=== PATIENT | female | born 1960 | race Caucasian/White ===

== ENCOUNTER 2023-09-24 10:05 | Observation (INO) ==
--- NOTE | 2023-09-24 10:23 | Emergency Department Note ---
Impression & Plan Syncopal episodes, Osteoporosis, Acquired hypothyroidism ED Provider Note NAME: GABRIEL GIBSON AGE: 63 SEX: F : 1960 ARRIVES VIA: Walk-In INFORMANT: Patient, ED PROVIDER(S): Luc Atwood MD CHIEF COMPLAINT: Syncope MEDICAL DECISION MAKING: Patient presents due to concern for syncope x 2. IV was established and blood work was obtained. Patient was ordered IV fluids and screening chest x-ray performed. Patient's blood work shows a normal white count H&H and platelet count. The patient's kidney function is unremarkable. Hyponatremia noted. BSG at 217. Hemoglobin A1c was ordered. This is noted to be elevated at 6.1. I did discuss admission for observation and further monitoring. After further discussion she is amenable to this. The patient is not local to the area but is transition traveling from [place] to [place] to help take care of her parents. I did speak with the on-call hospitalist service Berta Gilbert PA-C and the patient was admitted by Dr. Sow Discussion w/ other healthcare providers: Berta Gilbert PA-C and Dr. Sow inpatient medicine service Prior /Outside records reviewed: None Differential diagnosis: Vasovagal event, dehydration, infection, hypoglycemia, electrolyte abnormalities, arrhythmia, pulmonary embolism, seizure among others were considered. Diagnostics, as interpreted by me: ECG: Sinus bradycardia, rate of 55, normal intervals, normal axis no ST elevations. Cardiac monitoring: An order was placed for continuous cardiac monitoring. The monitor shows a rate of 56 with sinus rhythm. Patient was placed on pulse oximetry Medical decision rules: None Imaging studies: I informally interpreted the patient's chest x-ray which does not show obvious pneumonia or pneumothorax with formal report to follow. HPI: Patient presents due to concern for syncope that occurred around 930 this morning. The patient was with a friend when she asked her to come over if she had a wave of nausea and reportedly had passed out in the friend's arms. She had sat her down to the floor and then laid her down. She came to fairly quickly. Soon thereafter the patient got back up immediately to eat and had some water and a banana. Patient reportedly had a second episode while seated in the chair where she had some generalized shaking which lasted maybe seconds and then seemed to be "out for longer period of time." This was per the friend who witnessed this. Patient denies any head or neck pain patient reportedly was not postictal not confused when she came to. Patient states that she did have a wave of nausea preceding the other episode and seemed "stronger." Patient denies any numbness tingling or focal weakness new. No prior history of stroke or seizure. Patient states that paternal family history of seizures although the one was likely provoked after a trauma with associated skull fracture. Patient relates that in the past she has have a feeling of fluttering or palpitations and she has brought this to the attention of other healthcare providers but the severity did not seem to warrant further evaluation at that time. Patient states that she did not have any symptoms other than the nausea preceding either event patient states that she does feel well now. The patient states that she slept well last evening. The patient did take some decaf green tea this morning but denies any supplements or stimulants no alcohol tobacco or drug use PAST MEDICAL HISTORY: Hypothyroidism, osteoporosis PAST SURGICAL HISTORY: Partial thyroidectomy SOCIAL HISTORY: Moving from [place] to [place] in transition to take care of her parents. Denies alcohol tobacco or drug use HOME MEDICATIONS: See Below ALLERGIES: See Below VITALS: See Below PHYSICAL EXAMINATION: GENERAL: NAD, non-toxic. Wearing glasses. EYE EXAM: Normal conjunctiva. PERRL, no anisocoria and EOM's grossly intact w/o pain. OROPHARYNX: Moist mucus membranes, grossly normal dentition. NECK: Trachea midline, no stridor. Supple, no nuchal rigidity, no adenopathy, non-tender. No signs of meningismus. FROM of the neck with good chin to chest and neck extension. LUNGS: Clear to auscultation. Normal chest wall mechanics. HEART: NSR, no MRG. ABDOMEN: Abdomen soft, non-tender, no masses, no rebound or guarding. BACK: No CVA TTP. SKIN: No rashes and no bruising. UPPER EXTREMITIES: Upper extremities are grossly normal. LOWER EXTREMITIES: Grossly normal, no edema. NEURO EXAM: A&O x3, cranial nerves II-XII grossly intact, normal speech, moves all 4 extremities. Good [id number], no drift and no sensory deficits. Past Med/Surg History Medical History Acquired hypothyroidism Osteoporosis MGUS (monoclonal gammopathy of unknown significance) Surgical History History of partial thyroidectomy Hx of tonsillectomy Wrist fracture L wrist with surgical repair, pins and screws Family History Other Diabetes Heart disease Kidney disease Social History Smoking Status: Never smoker Hx Alcohol Use: No Hx Substance Use: No Preferred Language: Bolivian Feels Safe at Home: Yes Home Meds Home Medications Medication Instructions Recorded Confirmed alendronate 70 mg tablet 70 mg PO WK 09/24/23 09/24/23 levothyroxine 50 mcg tablet 50 mcg PO DAILY 09/24/23 09/24/23 Results & Data (ED) Vital Signs Vital Signs - 24 hr 09/24/23 10:10 09/24/23 10:41 09/24/23 10:41 Temperature 36.6 C Temperature Source Temporal Artery Scan Pulse Rate 57 L Pulse Rate [Apical] 63 Respiratory Rate 18 18 Respiratory Effort / Characteristics Non-Labored Spontaneous Respiratory Depth Normal Normal Respiratory Pattern Regular Blood Pressure 137/81 Blood Pressure [Left Arm] 129/74 Blood Pressure Mean 99 Blood Pressure Mean [Left Arm] 92 Blood Pressure Position Sitting Blood Pressure Position [Left Arm] Lying Pulse Oximetry 100 100 Oxygen Delivery Method Room Air Room Air Room Air Sepsis Recent Fever Within 48 Hours No Sepsis New/Unexplained Change in Mental Status No Sepsis Action Taken by Nursing No Action Required 09/24/23 10:50 09/24/23 11:55 09/24/23 12:06 Temperature Temperature Source Pulse Rate 57 L 68 Pulse Rate [Apical] 65 Respiratory Rate 18 18 Respiratory Effort / Characteristics Non-Labored Spontaneous Respiratory Depth Normal Respiratory Pattern Regular Blood Pressure Blood Pressure [Left Arm] 116/68 Blood Pressure Mean Blood Pressure Mean [Left Arm] 84 Blood Pressure Position Blood Pressure Position [Left Arm] Lying Pulse Oximetry 100 100 Oxygen Delivery Method Room Air Room Air Sepsis Recent Fever Within 48 Hours Sepsis New/Unexplained Change in Mental Status Sepsis Action Taken by Nursing 09/24/23 15:01 Temperature Temperature Source Pulse Rate Pulse Rate [Apical] 60 Respiratory Rate 18 Respiratory Effort / Characteristics Non-Labored Spontaneous Respiratory Depth Normal Respiratory Pattern Regular Blood Pressure Blood Pressure [Left Arm] 121/79 Blood Pressure Mean Blood Pressure Mean [Left Arm] 93 Blood Pressure Position Blood Pressure Position [Left Arm] Pulse Oximetry 100 Oxygen Delivery Method Room Air Sepsis Recent Fever Within 48 Hours Sepsis New/Unexplained Change in Mental Status Sepsis Action Taken by Shelter Medications Current Medication List: was personally reviewed by me Laboratory Data Attestation: I reviewed the patient's lab results. 09/24/23 10:35 09/24/23 10:35 Lab Results 09/24/23 Range/Units 10:35 WBC 6.59 (4.8-10.8) K/ul RBC 4.68 (4.20-5.40) M/uL Hgb 12.8 (12.0-16.0) g/dl Hct 40.5 (37.0-47.0) % MCV 86.5 (80.0-100.0) fL MCH 27.4 (25.0-34.0) pg MCHC 31.6 L (32.0-36.0) g/dL RDW Std Deviation 43.8 (36.4-46.3) fL RDW Coeff of Paula 13.9 (11.5-14.5) % Plt Count 268 (130-400) K/uL MPV 10.3 (9.4-12.4) fL Immature Gran % (Auto) 0.3 % Neut % (Auto) 72.4 % Lymph % (Auto) 19.9 % [place] % (Auto) 5.9 % Eos % (Auto) 1.2 % Baso % (Auto) 0.3 % Neut # (Auto) 4.77 (1.40-6.50) K/uL Lymph # (Auto) 1.31 (1.20-3.40) K/uL [place] # (Auto) 0.39 (0.11-0.59) K/uL Eos # (Auto) 0.08 (0.00-0.50) K/uL Baso # (Auto) 0.02 (0.00-0.20) K/uL Immature Gran # (Auto) 0.02 (0.01-0.20) K/uL Sodium 135 L (136-145) mmol/L Potassium 4.2 (3.5-5.1) mmol/L Chloride 100 (98-107) mmol/L Carbon Dioxide 27 (21-32) mmol/L Anion Gap 8 (3-11) BUN 23 (6-23) mg/dl Creatinine 0.91 (0.6-1.2) mg/dl Est Cr Clr Drug Dosing 47.5 ml/min Est GFR ( Amer) 76.7 ml/min Est GFR (Non-Af Amer) 66.2 ml/min BUN/Creatinine Ratio 25.3 H (10-20) Glucose 217 H (70-99(Fasting)) mg/dl POC Glucose 168 H (70-99) mg/dl Estimat Average Glucose 128 mg/dl Hemoglobin A1c 6.1 H (4.5-5.6) % Calcium 9.4 (8.6-10.3) mg/dl Magnesium 1.9 (1.7-2.4) mg/dl Total Bilirubin 0.5 (0.2-1.0) mg/dl AST 19 (13-39) U/L ALT 12 (7-52) U/L Alkaline Phosphatase 33 L (34-104) U/L Total Protein 7.2 (6.0-8.3) gm/dl Albumin 4.4 (3.4-5.0) gm/dl Globulin 2.8 (2.5-4.0) gm/dl Albumin/Globulin Ratio 1.6 (0.9-2) TSH 3.187 (0.300-4.500) uIu/ml Administered Medications Discontinued Medications Sodium Chloride (Nss) 1,000 mls @ 999 mls/hr IV .Q1H1M ONE Stop: 09/24/23 11:48 Last Infusion: 09/24/23 12:56 Dose: Infused Documented By: Admin: 09/24/23 10:53 Dose: 999 mls/hr Documented By: BROOKE Imaging Data Radiologist's Impression: Chest X-Ray 09/24/23 11:06 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 No pneumothorax, pleural effusion or airspace consolidation. The bones appear intact. Mild upper thoracic levoscoliosis. IMPRESSION: No acute process. ACT 112: Negative or not required by law. The above report was generated using voice recognition software. It may contain grammatical, syntax or spelling errors. Electronically signed by: Onofre Schneider M.D. 09/24/2023 11:[address] 09/24/23 13:40 CT head/brain wo con CLINICAL HISTORY: 63 years-old Female with syncopal episodes. Acute syncope TECHNIQUE: Multiple axial CT images of the head were obtained without contrast. A dose lowering technique was utilized adhering to the principles of ALARA. CT DOSE: 547.75 mGy.cm COMPARISON: None. FINDINGS: No acute intracranial hemorrhage, midline shift, intracranial mass, hydrocephalus, territorial ischemia or abnormal extra-axial collection. Mild involutional changes. The calvarium is intact. The paranasal sinuses, mastoid air cells, and middle ear cavities are clear. IMPRESSION: No acute intracranial abnormality. ACT 112: Negative or not required by law. The above report was generated using voice recognition software. It may contain grammatical, syntax or spelling errors. Electronically signed by: Onofre Schneider M.D. 09/24/2023 2:58 PM Discharge Plan Visit Data Chief Complaint: Syncope Stated Complaint: NAUSEA AND SYNCOPE ED Provider: Luc Atwood Discharge Problem: Syncopal episodes, Osteoporosis, Acquired hypothyroidism Patient Disposition: Admitted As Inpatient Discharge Instructions Interventions: ED Discharge Assessment Last Done: 09/24/23 15:40 Forms Stand Alone Forms: [employer] Prescriptions Prescriptions: No Action alendronate 70 mg tablet 70 mg PO WK levothyroxine 50 mcg tablet 50 mcg PO DAILY Referrals Referrals: NORY SEVERINO [Other] Discharge Problem: Syncopal episodes Qualifiers: Syncope type: unspecified Qualified Code(s): R55 - Syncope and collapse Osteoporosis Qualifiers: Osteoporosis type: unspecified
[2023-09-24] MEDS ORDERED: SODIUM CHLORIDE 0.9% 1,000 ML IV ONE (10:48)
[2023-09-24 11:02] LABS: Basophils # (auto) 0.02 K/uL (0.00-0.20); Basophils % (auto) 0.3 %; Eosinophils # (auto) 0.08 K/uL (0.00-0.50); Eosinophils % (auto) 1.2 %; Hematocrit (blood only) 40.5 % (37.0-47.0); Hemoglobin 12.8 g/dl (12.0-16.0); Immature Granulocytes # (auto) 0.02 K/uL (0.01-0.20); Immature Granulocytes % (auto) 0.3 %; Lymphocytes # (auto) 1.31 K/uL (1.20-3.40); Lymphocytes % (auto) 19.9 %; Mean Corpuscular Hemoglobin 27.4 pg (25.0-34.0); Mean Corpuscular Hgb Conc 31.6 g/dL (32.0-36.0); Mean Corpuscular Volume 86.5 fL (80.0-100.0); Mean Platelet Volume 10.3 fL (9.4-12.4); Monocytes # (auto) 0.39 K/uL (0.11-0.59); Monocytes % (auto) 5.9 %; Neutrophils # (auto) 4.77 K/uL (1.40-6.50); Neutrophils % (auto) 72.4 %; Platelet Count 268 K/uL (130-400); RDW Coefficient of Variation 13.9 % (11.5-14.5); RDW Standard Deviation 43.8 fL (36.4-46.3); Red Blood Count 4.68 M/uL (4.20-5.40); White Blood Count 6.59 K/ul (4.8-10.8)
[2023-09-24 11:04] LABS: Albumin Globulin Ratio 1.6 (0.9-2); Albumin Level 4.4 gm/dl (3.4-5.0); BUN Creatinine Ratio 25.3 (10-20); Bilirubin,Total 0.5 mg/dl (0.2-1.0); Calcium 9.4 mg/dl (8.6-10.3); Creatinine Clr Calc Pharmacy 47.5 ml/min; Est GFR (African American) 76.7 ml/min; Est GFR (Non-African American) 66.2 ml/min; Globulin 2.8 gm/dl (2.5-4.0); Magnesium 1.9 mg/dl (1.7-2.4); Potassium 4.2 mmol/L (3.5-5.1); Total Protein 7.2 gm/dl (6.0-8.3)
--- NOTE | 2023-09-24 11:36 | XRay Report ---
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 No pneumothorax, pleural effusion o r airspace consolidation. The bones appear intact. Mild upper thoracic levoscoliosis. IMPRESSION: No acute process. ACT 112: Negative or not required by law. The above report was generated using voice recognition software. It may contain grammatical, syntax o r spelling errors. Electronically signed by: Onofre Schneider M.D. 09/24/2023 11:35 AM
[2023-09-24 12:28] LABS: Estimated Average Glucose 128 mg/dl; Hemoglobin A1C 6.1 % (4.5-5.6)
--- NOTE | 2023-09-24 12:45 | History & Physical Report ---
Date of Service September 24, 2023 Assessment & Plan (1) Syncopal episodes: Plan: This is a 63-year-old female visiting family in the area with PMH of MGUS, osteoporosis, history of partial thyroidectomy and other medical problems listed below who presents after 2 witnessed syncopal episodes at home this morning. No recurrent episodes since arrival BSG 217, a1c 6.1 Afebrile, no leukocytosis, lytes WNL CXR no acute process, EKG with sinus bradycardia at 57 bpm Work up - TSH with reflex T4 pending, CT head, orthostatics, 2D echo, lipids in AM, tele monitoring overnight Seizure considered but doubt based on description, no post ictal period Hgb 12.8, family request for iron studies, pending for AM Recommend PCP follow up for Zio patch monitoring (2) Acquired hypothyroidism: Plan: Continue levothyroxine, follow pending TSH R thyroid nodule noted by PCP- following up with [facility] in November, h/o benign nodile of L thyroid s/p thyroidectomy (3) Osteoporosis: Plan: Continue alendronate (4) MGUS (monoclonal gammopathy of unknown significance): Plan: Established with [facility] close to home DVT Ppx: SQ lovenox Code status: FULL PCP: Kamran (Pasha) Dispo: observation telemetry Patient seen in collaboration with Dr. Sow. Please see addendum. I spent a total of 75 minutes coordinating, documenting, and providing care for this patient excluding time spent in the performance of separately billed services. History of Present Illness Chief Complaint: Syncopal episodes Primary Care Provider: NORY SEVERINO This is a 63-year-old female visiting family in the area with PMH of MGUS, osteoporosis, history of partial thyroidectomy and other medical problems listed below who presents after 2 witnessed syncopal episodes at home this morning. Patient was in the area for a girls weekend with family and developed nausea and lightheadedness around 930 this morning while drinking her decaf green tea and had a syncopal episode. Her family member caught her and safely brought her down to the ground, where she came to quickly. No postictal period based on the description. Was able to get up and ambulate to the other room, where she ate a banana and drink some water. Had another event preceded with nausea that lasted longer with some witnessed "shaking" prior to a longer period where she was unresponsive before coming to. No confusion or lethargy, no bowel or bladder incontinence or tongue biting. Denies history of seizure or syncope in the past. Her mom has seizure history, but that only developed after a TBI. Patient is otherwise feeling well and back to baseline on exam in the ED. Focal neurological deficits. No fever, chills, lightheadedness, visual changes, chest pain, shortness of breath, nausea, vomiting, vomiting dysuria, diarrhea or constipation. Has been under significant emotional stress over the past 2 years due to caring for elderly parents who are both ill. PCP recently found a thyroid nodule in the right lobe and is awaiting endocrinology evaluation through [facility] in November. PCP is with [facility] as well. Is in the process of [place] a home in the [place] of [place] to be closer to her parents. Currently residing with her brother in [place]. Only home medications include levothyroxine and once a week alendronate. Non-smoker. Allergies Allergy/AdvReac Type Severity Reaction Status Date / Time No Known Allergies Allergy Unverified 09/24/23 16:28 Home Medications Medication Instructions Recorded Confirmed Type alendronate 70 mg tablet 70 mg PO WK 09/24/23 09/24/23 History levothyroxine 50 mcg tablet 50 mcg PO DAILY 09/24/23 09/24/23 History Past Med/Surg History Medical History Acquired hypothyroidism Osteoporosis MGUS (monoclonal gammopathy of unknown significance) Surgical History History of partial thyroidectomy Hx of tonsillectomy Wrist fracture L wrist with surgical repair, pins and screws Family History Other Diabetes Heart disease Kidney disease Social History Smoking Status: Never smoker Hx Alcohol Use: No Hx Substance Use: No Preferred Language: Lithuanian Communication Ability: Effective Construction Rigger Required: No Beliefs That Will Affect Care: None Current Living Situation: Alone Current Living Situation Comment: temporarily living at brothers Other Information That Helps Us Care for You: No Feels Safe at Home: Yes Assistive Devices: Glasses Review of Systems Review of Systems: At least ten systems reviewed and negative except as noted in the HPI. Physical Exam Physical Exam: General Appearance: WD/WN, vitals as above, NAD, sitting up in bed, pleasant, conversing easily Head: normocephalic, atraumatic Eyes: normal inspection, PERRL, conjunctivae normal, anicteric sclerae ENT: external ear and nose normal, oropharynx normal Neck: normal visual inspection, trachea midline, no thyromegaly Respiratory: normal respiratory effort, lungs clear to auscultation, no wheeze, rales, rhonchi. No accessory muscle use Cardiovascular: regular rate, rhythm, no murmur, normal peripheral pulses, no BLE edema. Vessels: no JVD Chest: normal inspection of chest Abdomen/GI: normal bowel sounds, soft, nontender, no hepatosplenomegaly Extremities/Musculoskeletal: no cyanosis or clubbing, extremities motor strength 5/5 Neurologic: PERRL, EOMI, accommodation nl, no face palsy, no dysarthria, CN's II-XI intact bilaterally and moves all extremities Psychiatric: A+Ox3, euthymic affect Skin: no rashes, normal color, warm/dry Results & Data Results & Data Vital Signs (Past 12 Hours) Vital Signs Temp Pulse Pulse Resp BP BP Pulse Ox 09/24/23 12:06 65 18 116/68 100 09/24/23 11:55 68 09/24/23 10:50 57 L 18 100 09/24/23 10:41 63 18 129/74 100 09/24/23 10:41 09/24/23 10:10 36.6 C 57 L 18 137/81 100 O2 Del Method 09/24/23 12:06 Room Air 09/24/23 11:55 09/24/23 10:50 Room Air 09/24/23 10:41 Room Air 09/24/23 10:41 Room Air 09/24/23 10:10 Room Air Laboratory Results Short CBC 09/24/23 Range/Units 10:35 WBC 6.59 (4.8-10.8) K/ul Hgb 12.8 (12.0-16.0) g/dl Hct 40.5 (37.0-47.0) % Plt Count 268 (130-400) K/uL BMP 09/24/23 10:35 Sodium 135 L Potassium 4.2 Chloride 100 Carbon Dioxide 27 BUN 23 Creatinine 0.91 Glucose 217 H Calcium 9.4 Liver Function 09/24/23 Range/Units 10:35 Total Bilirubin 0.5 (0.2-1.0) mg/dl AST 19 (13-39) U/L ALT 12 (7-52) U/L Alkaline Phosphatase 33 L (34-104) U/L Albumin 4.4 (3.4-5.0) gm/dl Diagnostic Findings Chest X-Ray 09/24/23 11:06 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 No pneumothorax, pleural effusion or airspace consolidation. The bones appear intact. Mild upper thoracic levoscoliosis. IMPRESSION: No acute process. ACT 112: Negative or not required by law. The above report was generated using voice recognition software. It may contain grammatical, syntax or spelling errors. Electronically signed by: Onofre Schneider M.D. 09/24/2023 11:35 AM ECG Additional Comments: ekg reviewed, sinus bradycardia at 57 bpm Code Status & VTE Plan VTE Prophylaxis Plan VTE Prophylaxis will be ordered: Yes Supervising Physician Co-Signing Physician Notes I have seen and discussed the case with the collaborating STEFANIA. I agree with the above H&P. I have reviewed and confirmed the patients medical history, the findings on physical examination, and the patients diagnosis and treatment plan with Vladimir AGUIAR and agree with the information documented. In short, Ms. Erickson is a 63 year old woman with history of hypothyroidism, MGUS and osteoporosis who is admitted for work up of syncopal episodes. Two episodes occured with in half an hour of each other, marked by prodromal nausea,sweating and subsquent collapse--patient denies any post-ictal confusion, palpitations, or other acute concerns. She notes that she still "felt awake" during those periods, but awoke and quickly oriented knowing something was off. Both episodes witness with shaking on the second episode. No morning meal, just green tea. attempted banana between each episode. Denies history of prediabetes/diabetes. Denies hx of seizures or other syncopal episodes. Didn't necessarily occur while rising from seated position. Vital signs normal. EKG stable with bradycardia. Labs otherwise unremarkable. TSH 3.187. CT head stable with age related changes. EXAM: generally pleasant woman, NAD; CV RRR, no murmur, RESP CTABL, GI soft NTND Plan #Syncope ECHO ordered monitor on tele orthostatics CT head WNL Carotid dopplers ordered #Prediabetes counseled on lifestle modifications #Hypothyroidism stable #Iron deficiency history Patient requested anemia labs and FOBT rest of plan as above
[2023-09-24 14:00] LABS: Thyroid Stimulating Hormone 3.187 uIu/ml (0.300-4.500)
--- NOTE | 2023-09-24 15:01 | CT Scan Report ---
CT head/brain wo con CLINICAL HISTORY: 63 years-old Female with syncopal episodes. Acute syncope TECHNIQUE: Multiple axial CT images of the head were obtained without contrast. A dose lowering tech nique was utilized adhering to the principles of ALARA. CT DOSE: 547.75 mGy.cm COMPARISON: None. FINDINGS: No acute intracranial hemorrhage, midline shift, intracranial mass, hydrocephalus, territorial ischem ia or abnormal extra-axial collection. Mild involutional changes. The calvarium is intact. The paranasal sinuses, mastoid air cells, and middle ear cavities are clear . IMPRESSION: No acute intracranial abnormality. ACT 112: Negative or not required by law. The above report was generated using voice recognition software. It may contain grammatical, syntax o r spelling errors. Electronically signed by: Onofre Schneider M.D. 09/24/2023 2:58 PM
[2023-09-24] MEDS ORDERED: ONDANSETRON INJ 2 MG/ML 2 ML VIAL IV PRN (16:25)
[2023-09-24] MEDS ORDERED: ACETAMINOPHEN 325 MG TAB PO PRN (16:25)
[2023-09-24] MEDS ORDERED: POLYETHYLENE (MIRALAX) 17 GM PACK PO PRN (16:25)
[2023-09-24] MEDS ORDERED: Patient's ALLERGY Info needs ENTERED STA (16:27)
--- NOTE | 2023-09-24 20:03 | Ultrasound Report ---
US carotid doppler BI CLINICAL HISTORY: 63 years-old Female with syncope. Acute syncope COMPARISON: Head CT of same day TECHNIQUE: Multiple real time sonographic images of the carotid bifurcations were obtained assessing doty scale, color Doppler and spectral wave form appearance FINDINGS: RIGHT CAROTID: The peak systolic velocity measurements in the right ICA is 71 cm/sec. The end diast olic velocity measured 32 cm/sec. The ICA to CCA ratio measured 1.2 which correlates with a stenosis of 0-50%. LEFT CAROTID: The peak systolic velocity measurements in the left ICA is 63 cm/sec. The end diastol ic velocity measured 26 cm/sec. The ICA to CCA ratio measured 1.2 which correlates with a stenosis of 0-50%. There is normal antegrade vertebral flow bilaterally. IMPRESSION: 1. No hemodynamically significant stenosis or significant atherosclerotic plaquing. 2. Normal antegrade vertebral flow bilaterally. ACT 112: Negative or not required by law. The above report was generated using voice recognition software. It may contain grammatical, syntax o r spelling errors. Electronically signed by: Onofre Schneider M.D. 09/24/2023 8:02 PM
[2023-09-25] MEDS ORDERED: LEVOTHYROXINE SODIUM 50 MCG TABLET PO SCH (06:30)
--- NOTE | 2023-09-25 06:31 | Electrocardiogram Report ---
Test Reason : Blood Pressure : / mmHG Vent. Rate : 055 BPM Atrial Rate : 055 BPM P-R Int : 114 ms QRS Dur : 098 ms QT Int : 438 ms P-R-T Axes : 054 031 051 degrees QTc Int : 419 ms Sinus bradycardia Otherwise normal ECG No previous ECGs available Confirmed by Joni Calhoun ([id number]) on 09/25/2023 6:31:15 AM Referred By: Confirmed By:Joni Calhoun
[2023-09-25 06:34] LABS: Hematocrit (blood only) 35.3 % (37.0-47.0); Hemoglobin 11.6 g/dl (12.0-16.0); Mean Corpuscular Hemoglobin 27.6 pg (25.0-34.0); Mean Corpuscular Hgb Conc 32.9 g/dL (32.0-36.0); Mean Platelet Volume 10.2 fL (9.4-12.4); Platelet Count 256 K/uL (130-400); RDW Coefficient of Variation 13.8 % (11.5-14.5); RDW Standard Deviation 42.4 fL (36.4-46.3)
[2023-09-25 06:49] LABS: BUN Creatinine Ratio 25.7 (10-20); Calcium 8.9 mg/dl (8.6-10.3); Chol HDL Ratio 2.2 (0-5); Creatinine Clr Calc Pharmacy 62.7 ml/min; Est GFR (African American) 98.5 ml/min; Potassium 4.5 mmol/L (3.5-5.1)
[2023-09-25 07:09] LABS: Ferritin 11.7 ng/ml (8-388)
[2023-09-25] MEDS ORDERED: ALENDRONATE SODIUM 70 MG TAB PO SCH (08:00)
--- NOTE | 2023-09-25 09:20 | Electrocardiogram Report ---
Test Reason : Blood Pressure : / mmHG Vent. Rate : 060 BPM Atrial Rate : 060 BPM P-R Int : 120 ms QRS Dur : 098 ms QT Int : 434 ms P-R-T Axes : 064 057 058 degrees QTc Int : 434 ms Normal sinus rhythm with sinus arrhythmia Normal ECG When compared with ECG of 24-SEP-2023 10:25, No significant change was found Confirmed by Alvin Villagomez ([id number]) on 09/25/2023 9:19:33 AM Referred By: REFERRED SELF Confirmed By:Alvin Villagomez
--- NOTE | 2023-09-25 10:34 | Discharge Summary ---
Discharge Summary Date of Service September 25, 2023 Notes For Next Care Provider -Recommended Holter monitor, ?tilt table Medication Changes From Visit None Admission HPI Per Admitting Provider This is a 63-year-old female visiting family in the area with PMH of MGUS, osteoporosis, history of partial thyroidectomy and other medical problems listed below who presents after 2 witnessed syncopal episodes at home this morning. Patient was in the area for a girls weekend with family and developed nausea and lightheadedness around 930 this morning while drinking her decaf green tea and had a syncopal episode. Her family member caught her and safely brought her down to the ground, where she came to quickly. No postictal period based on the description. Was able to get up and ambulate to the other room, where she ate a banana and drink some water. Had another event preceded with nausea that lasted longer with some witnessed "shaking" prior to a longer period where she was unresponsive before coming to. No confusion or lethargy, no bowel or bladder incontinence or tongue biting. Denies history of seizure or syncope in the past. Her mom has seizure history, but that only developed after a TBI. Patient is otherwise feeling well and back to baseline on exam in the ED. Focal neurological deficits. No fever, chills, lightheadedness, visual changes, chest pain, shortness of breath, nausea, vomiting, vomiting dysuria, diarrhea or constipation. Has been under significant emotional stress over the past 2 years due to caring for elderly parents who are both ill. PCP recently found a thyroid nodule in the right lobe and is awaiting endocrinology evaluation through [facility] in November. PCP is with [facility] as well. Is in the process of [place] a home in the [place] of [place] to be closer to her parents. Currently residing with her brother in [place]. Only home medications include levothyroxine and once a week alendronate. Non-smoker. Admission Exam Per Admitting Provider General Appearance: WD/WN, vitals as above, NAD, sitting up in bed, pleasant, conversing easily Head: normocephalic, atraumatic Eyes: normal inspection, PERRL, conjunctivae normal, anicteric sclerae ENT: external ear and nose normal, oropharynx normal Neck: normal visual inspection, trachea midline, no thyromegaly Respiratory: normal respiratory effort, lungs clear to auscultation, no wheeze, rales, rhonchi. No accessory muscle use Cardiovascular: regular rate, rhythm, no murmur, normal peripheral pulses, no BLE edema. Vessels: no JVD Chest: normal inspection of chest Abdomen/GI: normal bowel sounds, soft, nontender, no hepatosplenomegaly Extremities/Musculoskeletal: no cyanosis or clubbing, extremities motor strength 5/5 Neurologic: PERRL, EOMI, accommodation nl, no face palsy, no dysarthria, CN's II-XI intact bilaterally and moves all extremities Psychiatric: A+Ox3, euthymic affect Skin: no rashes, normal color, warm/dry Principal Dx & Hospital Course #1 = Principal Diagnosis (1) Syncopal episodes: (2) Acquired hypothyroidism: (3) Osteoporosis: (4) MGUS (monoclonal gammopathy of unknown significance): Plan Ms. Erickson is a 63-year-old female visiting family in the area with PMH of MGUS, osteoporosis, history of partial thyroidectomy and other medical problems listed below who presents after 2 witnessed syncopal episodes at home within 10-15 minutes on 09/24. 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 CT Head was normal. TSH WNL. telemetry reviewed and no events over night with rates in mid-50s-70s, as well as up to low 100s consistent with times reported ambulating. Dopplers not suggestive of cardiovascular disease. ECHO revealed LVH and GIDD, but otherwise no LVOT obstruction or valvular disease. Orthostatics were negative. Patient advised to follow up with PCP for holtermontior and questionable tilt table testing. Patient advised to ensure adequate hydration and to monitor for fatigue during periods of excerise and to practice moderation. 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 #Osteoporosis Continue alendronate #MGUS Established with [facility] close to home Discharge Exam Constitutional WD/WN, vitals as above Respiratory normal respiratory effort, lungs clear to auscultation Cardiovascular RRR, no murmur, no edema Gastrointestinal (Abdomen) normal bowel sounds, soft, nontender, no hepatosplenomegaly Neurologic PERRL, EOMI, accommodation nl, no face palsy, no dysarthria Updated Medication List Medication Instructions Recorded Confirmed Type alendronate 70 mg tablet 70 mg PO WK 09/24/23 09/24/23 History levothyroxine 50 mcg tablet 50 mcg PO DAILY 09/24/23 09/24/23 History Hospital Stay Data Consultations 09/24/23 12:40 ED Decision to Admit Stat Diagnostic Imagining Performed 09/24/23 13:[address] [CT head/brain wo con] Routine 09/24/23 17:40 US carotid doppler BI Routine Pending Results Patient Have Any Pending Studies at Discharge: No Discharge Instructions Given to Patient (Per Discharging Provider) You were admitted to work up acute causes of syncope, or fainting spell. Your admission was not notable for any acute causes of syncope: no signs of seizure, no infection, no acute signs of blood loss, no signs of vascular obstruction/circulation to brain issues. You hemoglobin went from 12.8 to 11.6, after IV fluids were administered--noting this to be consistent with your outpatient labs. Your orthostatic blood pressure (changing positions) did not drop, in fact your blood pressure increased upon standing. You did not reveal any arrhythmia/abnormal heart rates on Telemetry. You should follow up with PCP promptly to discuss obtaining a Holter monitor to assess your heart rhythm and rates for longer period of times, as well as discuss if a tilt table test should be performed. Given the robust exercising, please ensure you are drinking a sufficient amount of fluids and staying hydrated as well as ensuring a well rounded diet. Additionally, please follow up with PCP to discuss your hemoglobin A1C of 6.1%, a marker of prediabetes. 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 No pneumothorax, pleural effusion or airspace consolidation. The bones appear intact. Mild upper thoracic levoscoliosis. IMPRESSION: No acute process. ACT 112: Negative or not required by law. The above report was generated using voice recognition software. It may contain grammatical, syntax or spelling errors. Electronically signed by: Onofre Schneider M.D. 09/24/2023 11:[address] 09/24/23 13:40 CT head/brain wo con CLINICAL HISTORY: 63 years-old Female with syncopal episodes. Acute syncope TECHNIQUE: Multiple axial CT images of the head were obtained without contrast. A dose lowering technique was utilized adhering to the principles of ALARA. CT DOSE: 547.75 mGy.cm COMPARISON: None. FINDINGS: No acute intracranial hemorrhage, midline shift, intracranial mass, hydrocephalus, territorial ischemia or abnormal extra-axial collection. Mild involutional changes. The calvarium is intact. The paranasal sinuses, mastoid air cells, and middle ear cavities are clear. IMPRESSION: No acute intracranial abnormality. ACT 112: Negative or not required by law. The above report was generated using voice recognition software. It may contain grammatical, syntax or spelling errors. Electronically signed by: Onofre Schneider M.D. 09/24/2023 2:58 PM Carotid Doppler Study 09/24/23 17:40 US carotid doppler BI CLINICAL HISTORY: 63 years-old Female with syncope. Acute syncope COMPARISON: Head CT of same day TECHNIQUE: Multiple real time sonographic images of the carotid bifurcations were obtained assessing doty scale, color Doppler and spectral wave form appearance FINDINGS: RIGHT CAROTID: The peak systolic velocity measurements in the right ICA is 71 cm/sec. The end diastolic velocity measured 32 cm/sec. The ICA to CCA ratio measured 1.2 which correlates with a stenosis of 0-50%. LEFT CAROTID: The peak systolic velocity measurements in the left ICA is 63 cm/sec. The end diastolic velocity measured 26 cm/sec. The ICA to CCA ratio measured 1.2 which correlates with a stenosis of 0-50%. There is normal antegrade vertebral flow bilaterally. IMPRESSION: 1. No hemodynamically significant stenosis or significant atherosclerotic plaquing. 2. Normal antegrade vertebral flow bilaterally. ACT 112: Negative or not required by law. The above report was generated using voice recognition software. It may contain grammatical, syntax or spelling errors. Electronically signed by: Onofre Schneider M.D. 09/24/2023 8:02 PM Total Time Total Time Spent Total Time Spent (In Minutes): 55
== END 2023-09-25 13:20 | disposition home or self-care (01) ==
LOC: ED 10:05 → 2E 10:05